=== PATIENT | male | born 1955 | race Caucasian/White ===

== ENCOUNTER 2019-03-12 17:54 | Observation (INO) | payer OTHER, BC | END 2019-03-13 14:55 | disposition home or self-care (01) | LOC: ED 17:54 → DU 20:43 → ED 17:54 → DU 03-13 14:55 → ED 17:54 → DU 20:43 ==

== ENCOUNTER 2019-11-04 19:32 | Emergency (ER) | payer OTHER ==
[~2019-11-04] VITALS: Ht 170.2 cm; Wt 78.9 kg
[2019-11-04 19:36] VITALS: Ht 170.2 cm; Wt 78.9 kg
[2019-11-04 21:07] VITALS: BP 145/84
== END 2019-11-04 21:07 | disposition home or self-care (01) ==
LOC: ED 19:32
DX: T18.9XXA Foreign body of alimentary tract, part unspecified, initial encounter (principal); R03.0 Elevated blood-pressure reading, without diagnosis of hypertension; W45.8XXA Other foreign body or object entering through skin, initial encounter; Y93.89 Activity, other specified; Y92.89 Other specified places as the place of occurrence of the external cause; Y99.8 Other external cause status